=== PATIENT | male | born 1960 | race African-American/Black ===

== ENCOUNTER 2017-01-25 21:11 | Emergency (ER) | payer SELFPAY ==
[~2017-01-25] VITALS: Ht 180.3 cm; Wt 77.0 kg
[2017-01-25 21:51] VITALS: BP 138/94
== END 2017-01-25 22:17 | disposition home or self-care (01) ==
LOC: ER 22:04
DX: Z76.0 Encounter for issue of repeat prescription (principal); I10 Essential (primary) hypertension
CPT/HCPCS: 99283